=== PATIENT | male | born 1980 | race Caucasian/White ===

== ENCOUNTER 2024-07-25 09:55 | Emergency (ER) | payer MEDICAID, SELFPAY ==
[2024-07-25 09:56] VITALS: BMI 32.1
[2024-07-25 10:02] VITALS: BP 151/97; PULSE 93; RESP 18; TEMP 36.5; O2SAT 97; BMI 32.1
--- NOTE | 2024-07-25 10:02 | XR_ITS ---
Examination: CT abdomen and pelvis without contrast. Coronal 3-D reconstructions. Sagittal 2-D reconstructions. Date and time of exam:July 25, 2024 1024 hrs. Indications: Generalized abdominal pain with bloody stools beginning 3 days ago CTDI: vol (mGy): 8.57 DLP: (mGycm): 584 Technique: Axial images of the abdomen have been obtained, 3 mm slice thickness Intravenous contrast material has not been administered. Low dose protocols were performed. One or more of the following dose reduction techniques were used; automated exposure control, adjustment of the mA and/or KV according to patient size, use of iterative reconstruction technique. Findings: No focal liver or splenic lesions. Cholelithiasis, negative for cholecystitis No pancreatic mass. Atrophic right kidney. Normal appendix. No bowel obstruction diverticulitis or free air. Diffuse mild thickening of the urinary bladder wall Mild prostatomegaly Impression: Cholelithiasis, negative for cholecystitis Atrophic right kidney, no hydronephrosis Normal appendix No bowel obstruction diverticulitis or nonspecific colitis or enteritis.
--- NOTE | 2024-07-25 10:02 | PD.EDABDPN ---
ED Abdominal Pain RME/HPI General Chief Complaint: Abdominal Pain Stated complaint: BLOODY STOOLS X 4DAYS, ABD PAIN Time seen by provider: 07/25/24 09:59 Arrival date/time: 07/25/24 09:55 RME / HPI RME / HPI narrative: This section includes all my notes and documentations, including HPI, PE, and ED course. Thomas Falk MD HPI: 44-year-old male here with many months of on and off upper abdominal pain. Nausea on and off. No vomiting. Currently, no N/V. Eating normally. No fever or chills. No urinary symptoms. No history of abdominal surgery. No other complaints. ROS: All negative except as documented in HPI. Physical Exam: General: Alert and oriented. No acute distress when remaining still. Eyes: Conjunctivae and lids clear. ENT: No nasal congestion. Neck: Supple. Heart: RRR. Lungs: No respiratory distress. Good air movement. No rhonchi, wheezing, rales. Abdomen: Soft and nontender. Normal bowel sounds. No distension. No rebound or guarding. Back: No CVA tenderness. Skin: Warm and dry. Neuro: Alert and oriented X 3. I reviewed all diagnostic test results. My review of the abdominal CT report is cholelithiasis. Blood tests unremarkable. At this point, diagnoses include cholelithiasis. Based on my best medical judgment, made decision no further evaluation or treatment indicated at this time. Discharge Instructions from Dr. Falk: 1. After evaluation, your symptoms are due to gallstones.? You need gallbladder to help digest fatty foods. 2. So to prevent future attacks, avoid all fatty and oily and greasy and buttery and dairy foods.? This usually means take out and fast food restaurants. 3. Zofran for nausea/vomiting.? Tylenol/ibuprofen as needed. 4. See a private doctor on 07/26/2024 for recheck and further care. Ask for help with gallbladder ultrasound and referral to see general surgeon to consider elective surgery. 5. Seek immediate medical care with intolerable pain, fever, or with any concerns. Prepared this discharge instructions for the patient but we couldn't find the patient. Thomas Falk MD Related Data Previous Rx's ?Medication ?Instructions ?Recorded ondansetron 4 mg disintegrating 4 mg PO TID PRN nausea and 07/25/24 tablet vomiting 30 days #10 tabs Allergies Allergy/AdvReac Type Severity Reaction Status Date / Time No Known Allergies Allergy Verified 07/25/24 09:58 Course Quality Measures none Orders Category Date Time Status CT abdomen pelvis wo con Stat Exams 07/25/24 10:02 Completed Amylase Stat Lab 07/25/24 10:08 Completed BMP [Basic Metabolic Panel] Stat Lab 07/25/24 10:08 Completed CBC Stat Lab 07/25/24 10:08 Completed Lipase Stat Lab 07/25/24 10:08 Completed Liver Panel Stat Lab 07/25/24 10:08 Completed Magnesium Stat Lab 07/25/24 10:08 Completed Vital Signs Vital signs: Vital Signs Temperature 97.7 F 07/25/24 10:02 Pulse Rate 93 07/25/24 10:02 Respiratory Rate 18 07/25/24 10:02 Blood Pressure 151/97 H 07/25/24 10:02 Pulse Oximetry (%) 97 07/25/24 10:02 Oxygen Delivery Method Room Air 07/25/24 10:02 Abdominal Pain MDM Patient data External records reviewed:: None Clinical information provided by:: patient Social determinants that could affect healthcare access:: none Patient has the following chronic illnesses:: None How is presenting disease/condition affected by chronic disease/condition?: no chronic disease Evaluation data The following diagnostics were reviewed and interpreted by me:: lab results and radiology exam(s) Lab and/or radiology exams considered but not ordered:: None Interpretation Summary: Cholelithiasis Medications / Prescriptions Medications or Prescriptions considered but not ordered:: None Medication administrations:: None Consultations Consultation(s) initiated? (list below): No Diagnosis Differential diagnosis abdominal pain: acute appendicitis, calculus of kidney, constipation, diverticulitis, pancreatitis, small bowel obstruction and other (Biliary colic) Most likely diagnosis given after review of the tests above:: Cholelithiasis Admission Indicated Admission indicated?: not indicated Explain why admission is indicated or not indicated:: There is no indication for admission Admission Request Was there a request for admission?: No Disposition Plan Disposition Plan: Discharge Discharge Attestation Discharge Attestation: The patient and all family members were given an opportunity to ask questions and understood the discharge instructions. Discharge instructions specifically effects, indications for sooner follow up or return to the emergency department, and the expected course of current diagnosis. Patient condition: Stable Discharge Plan Plan Patient Disposition: Elopement Prescriptions/Referrals Prescriptions/Med Rec: New ondansetron 4 mg tablet,disintegrating 4 mg PO TID PRN (Reason: nausea and vomiting) 30 Days Qty: 10 0RF Referrals: No Primary/Family,Physician [Primary Care Provider] - In 1 week Problem List Clinical Impression: Gallstones Patient/Caregiver Discharge Instructions Discharge Activity: activity as tolerated Education Materials: ED Gallstones with Biliary Colic Additional Instructions: Discharge Instructions from Dr. Falk: 1. After evaluation, your symptoms are due to gallstones.? You need gallbladder to help digest fatty foods. 2. So to prevent future attacks, avoid all fatty and oily and greasy and buttery and dairy foods.? This usually means take out and fast food restaurants. 3. Zofran for nausea/vomiting.? Tylenol/ibuprofen as needed. 4. See a private doctor on 07/26/2024 for recheck and further care. Ask for help with gallbladder ultrasound and referral to see general surgeon to consider elective surgery. 5. Seek immediate medical care with intolerable pain, fever, or with any concerns. Print Language: [place] Stand Alone Forms: [employer] Award Info., Patient Portal Info Letter
[2024-07-25 10:33] LABS: Basophils % (Auto) 0 % (0-2.5); Eosinophils # (Auto) 0.2 Thou/mm3 (0.0-0.5); Eosinophils % (Auto) 3 % (0-10); Hematocrit 43.8 % (41.0-53.0); Immature Granulocytes % (Auto) 0 % (0-0); Immature Granulocytes Auto 0.01 Thou/mm3 (0.00-0.00); Lymphocytes % (Auto) 43 % (10-50); Mean Corpuscular HGB Conc 34.2 g/dl (31.0-37.0); Mean Corpuscular Hemoglobin 30.7 pg (25.0-35.0); Mean Corpuscular Volume 90 fL (80-100); Monocytes # (Auto) 0.5 Thou/mm3 (0.0-0.8); Monocytes % (Auto) 7 % (0-12); Neutrophils # (Auto) 3.3 Thou/mm3 (1.8-7.7); Neutrophils % (Auto) 47 % (37-80); Nucleated Red Blood Cell % 0 /100 WBC (0); Platelet Count 160 Thou/mm3 (140-440); RDW Standard Deviation 41.4 fL (35.1-43.9); Red Blood Count 4.89 Miln/mm3 (4.50-5.90); White Blood Count 6.9 Thou/mm3 (3.8-10.6)
[2024-07-25 10:50] LABS: Alanine Aminotransferase 27 U/L (10-49); Albumin, Serum 4.6 gm/dL (3.5-5.0); Amylase 62 U/L (30-118); Anion Gap 6 (7-16); Aspartate Amino Transferase 37 U/L (0-34); BUN/Creatinine Ratio 12 Ratio (12-20); Bilirubin,Direct 0.2 mg/dL (0.0-0.3); Blood Urea Nitrogen 13 mg/dL (9-23); Calcium 9.7 mg/dL (8.3-10.6); Chloride 103 mMol/L (98-107); Creatinine (Component) 1.1 mg/dL (0.6-1.3); Estimated Creatinine Clearance 114.8 mL/min (>60); Glucose 92 mg/dL (74-106); Lipase 44 U/L (12-53); Magnesium 2.1 mg/dL (1.6-2.6); Osmolality,Calculated 275 (275-295); Sodium 138 mMol/L (136-145); eGFR > 60 See Note
[2024-07-25 11:29] LABS: Alkaline Phosphatase 76 U/L (46-116); Bilirubin,Total 0.5 mg/dL (0.3-1.2); Total Protein 7.6 gm/dL (5.7-8.2)
--- NOTE | 2024-07-25 12:46 | PC.NURSE ---
PT ELOPED PRIOR TO DISCHARGE
== END 2024-07-25 12:00 | disposition left against medical advice (07) ==
PROVIDERS: Emergency Provider Emergency Medicine
DX: K80.20 Calculus of gallbladder without cholecystitis without obstruction (principal); Z53.29 Procedure and treatment not carried out because of patient's decision for other reasons
CPT/HCPCS: 36415; 74176; 80048; 80076; 82150; 83690; 83735; 85025; 99284